=== PATIENT | male | born 1955 ===

== ENCOUNTER 2021-03-20 16:35 | Emergency (ER) | payer OTHER ==
--- NOTE | 2021-03-20 16:45 | EDM.PDOC ---
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 Denies: Old Records History Limitations: Reports: Other (no old records) - History of Present Illness INITIAL COMMENTS - FREE TEXT/NARRATIVE: 65 yo male from [place], [place] got his 2nd Covid vaccine yesterday. He awoke in the middle of the night with chills. Today has mild SOB, CP, and feels weak. Has been taking acetaminophen since the onset of his sx's. No cough or urinary sx's. Onset: Today, Sudden Onset Date: 03/20/21 Onset Time: 03:00 Duration: Hour(s):, Constant Location: Reports: Generalized Quality: Reports: Ache Severity: Moderate Improves with: Reports: Medication (acetaminophen improves somewhat) Worsens with: Reports: None Context: Reports: Other (See HPI) Associated Symptoms: Reports: Chest Pain, Diaphoresis, Fever/Chills, Shortness of Breath, Weakness. 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 - Related Data Allergies Allergy/AdvReac Type Severity Reaction Status Date / Time propofol Allergy Other Verified 03/20/21 16:44 Home Meds: Home Meds Aspirin [Halfprin] 81 mg PO DAILY 03/20/21 [History] Clopidogrel Bisulfate [Plavix] 75 mg PO DAILY 03/20/21 [History] Levothyroxine 175 mcg PO ACBREAKFAST 03/20/21 [History] Loratadine [Claritin] 10 mg PO DAILY 03/20/21 [History] Methotrexate 8 tab PO ASDIRECTED 03/20/21 [History] Nitroglycerin 0.4 mg SL ASDIRECTED 03/20/21 [History] atorvaSTATin [Lipitor] 10 mg PO DAILY 03/20/21 [History] carvediloL [Carvedilol] 12.5 mg PO BID 03/20/21 [History] glyBURIDE [Micronase] 2.5 mg PO DAILY 03/20/21 [History] lisinopriL [Lisinopril] 10 mg PO DAILY 03/20/21 [History] metFORMIN [Glucophage] 1,000 mg PO DAILY 03/20/21 [History] ED ROS GENERAL - Review of Systems Review Of Systems: See Below Constitutional: Reports: No Symptoms HEENT: Reports: No Symptoms Respiratory: Reports: Shortness of Breath Cardiovascular: Reports: Chest Pain, Dyspnea on Exertion GI/Abdominal: Reports: No Symptoms Musculoskeletal: Reports: Neck Pain (back of neck) Skin: Reports: Diaphoresis Neurological: Reports: No Symptoms Psychiatric: Reports: No Symptoms ED EXAM, GENERAL - Physical Exam Exam: See Below Exam Limited By: No Limitations General Appearance: Alert, WD/WN, No Apparent Distress Eye Exam: Bilateral Eye: Normal Inspection Ears: Normal External Exam, Normal Canal, Hearing Grossly Normal Nose: Normal Inspection, No Blood Throat/Mouth: Normal Inspection, Normal Lips, Normal Oropharynx, Normal Voice, No Airway Compromise Head: Atraumatic, Normocephalic Neck: Normal Inspection Respiratory/Chest: No Respiratory Distress, Lungs Clear, Normal Breath Sounds, No Accessory Muscle Use, Chest Non-Tender Cardiovascular: Regular Rate, Rhythm, No Edema GI/Abdominal: Normal Bowel Sounds, Soft, No Distention, Tender (RUQ). No: Non- Tender, Distended Back Exam: Normal Inspection. No: CVA Tenderness (R), CVA Tenderness (L) Extremities: Normal Inspection, Normal Range of Motion, Non-Tender, No Pedal Edema. No: Pedal Edema, Mariah's Sign Neurological: Alert, Oriented, CN II-XII Intact, Normal Cognition, No Motor/Sensory Deficits Psychiatric: Normal Affect, Normal Mood Skin Exam: Warm, Dry, Intact, Normal Color, No Rash #1 Interpretation EKG Date: 03/20/21 Time: 16:40 Rhythm: NSR Rate (Beats/Min): 94 Mora: Normal P-Wave: Present QRS: RBBB ST-T: Normal QT: Normal Comparison: NA - No Prior EKG (inverted T's in III, AVF) Course - Vital Signs Last Recorded V/S: Last Vital Signs Temp 37 C 03/20/21 17:01 Pulse 92 03/20/21 17:36 Resp 20 03/20/21 17:36 BP 145/72 H 03/20/21 17:36 Pulse Ox 93 L 03/20/21 17:36 - Orders/Labs/Meds Orders: Active Orders 24 hr Category Date Time Status Cardiac Monitoring [RC] .As Directed Care 03/20/21 16:38 Active EKG Documentation Completion [RC] ASDIRECTED Care 03/20/21 16:38 Active Dextrose 50% in Water Med 03/20/21 17:44 Active 50 ml IVPUSH ASDIRECTED PRN Glucagon,Human Recombinant [GlucaGen] Med 03/20/21 17:44 Active 1 mg IM ASDIRECTED PRN EKG 12 Lead [EK] Routine Ther 03/20/21 16:38 Ordered Medication Orders Dextrose/Water (50% Dextrose In Water 50 Ml Syringe) 50 ml IVPUSH ASDIRECTED PRN PRN Reason: Hypoglycemia Glucagon (Glucagon,Human Recombinant 1 Mg Vial) 1 mg IM ASDIRECTED PRN PRN Reason: Hypoglycemia Labs: Laboratory Tests 03/20/21 03/20/21 03/20/21 Range/Units 17:17 17:17 17:25 WBC 5.6 (4.5-11.0) K/uL RBC 4.61 (4.30-5.90) M/uL Hgb 15.2 H (12.0-15.0) g/dL Hct 43.7 (40.0-54.0) % MCV 95 (80-98) fL MCH 33 H (27-31) pg MCHC 35 (32-36) % Plt Count 186 (150-400) K/uL Sodium 138 L (140-148) mmol/L Potassium 3.9 (3.6-5.2) mmol/L Chloride 101 (100-108) mmol/L Carbon Dioxide 26 (21-32) mmol/L Anion Gap 14.9 H (5.0-14.0) mmol/L BUN 12 (7-18) mg/dL Creatinine 1.1 (0.8-1.3) mg/dL Est Cr Clr Drug Dosing 72.26 mL/min Estimated GFR (MDRD) > 60 (>60) Glucose 274 H (74-106) mg/dL Calcium 8.7 (8.5-10.1) mg/dL Total Bilirubin 0.9 (0.2-1.0) mg/dL AST 30 (15-37) U/L ALT 59 (12-78) U/L Alkaline Phosphatase 88 (46-116) U/L Troponin I < 0.017 (0.000-0.056) ng/mL C-Reactive Protein 2.35 H (0.0-0.3) mg/dL Total Protein 6.6 (6.4-8.2) g/dL Albumin 3.7 (3.4-5.0) g/dL Globulin 2.9 (2.3-3.5) g/dL Albumin/Globulin Ratio 1.3 (1.2-2.2) Meds: Medications Generic Name Dose Route Start Last Admin Trade Name Freq PRN Reason Stop Dose Admin Dextrose/Water 50 ml 03/20/21 17:44 50% Dextrose In Water 50 Ml Syringe IVPUSH ASDIRECTED PRN Hypoglycemia Glucagon 1 mg 03/20/21 17:44 Glucagon,Human Recombinant 1 Mg Vial IM ASDIRECTED PRN Hypoglycemia Discontinued Medications Generic Name Dose Route Start Last Admin Trade Name Freq PRN Reason Stop Dose Admin Insulin Human Regular 12 unit 03/20/21 17:44 Insulin Regular, Human 100 Units/Ml 3 Ml Vial SUBCUT 03/20/21 17:45 ONETIME ONE Departure - Departure Time of Disposition: 18:05 Disposition: Home, Self-Care 01 Condition: Fair Clinical Impression: Elevated blood sugar Vaccine reaction Qualifiers: Encounter type: initial encounter Qualified Code(s): T50.Z95A - Adverse effect of other vaccines and biological substances, initial encounter Referrals: PCP,None [Primary Care Provider] - Forms: ED Department Discharge Additional Instructions: Rest. Drink ample fluids. Continue acetaminophen 1000 mg every 6 hrs. Return or get rechecked if worse. Sepsis Event Note (ED) - Focused Exam Vital Signs: Vital Signs Temp Pulse Resp BP Pulse Ox 03/20/21 17:36 92 20 145/72 H 93 L 03/20/21 17:21 92 18 129/66 93 L 03/20/21 17:06 94 19 136/70 95 03/20/21 17:01 37 C 99 19 148/74 H 95 03/20/21 16:51 98 19 132/66 93 L 03/20/21 16:40 37 C 99 19 148/74 H 95 - My Orders Last 24 Hours: My Active Orders 03/20/21 16:38 Cardiac Monitoring [RC] .As Directed EKG Documentation Completion [RC] ASDIRECTED EKG 12 Lead [EK] Routine 03/20/21 17:44 Dextrose 50% in Water 50 ml IVPUSH ASDIRECTED PRN Glucagon,Human Recombinant [GlucaGen] 1 mg IM ASDIRECTED PRN - Assessment/Plan Last 24 Hours: My Active Orders 03/20/21 16:38 Cardiac Monitoring [RC] .As Directed EKG Documentation Completion [RC] ASDIRECTED EKG 12 Lead [EK] Routine 03/20/21 17:44 Dextrose 50% in Water 50 ml IVPUSH ASDIRECTED PRN Glucagon,Human Recombinant [GlucaGen] 1 mg IM ASDIRECTED PRN
[2021-03-20] MEDS ORDERED: Glucagon,Human Recombinant 1 MG Vial IM PRN (17:44)
[2021-03-20] MEDS ORDERED: Insulin Regular, Human 100 Units/ML 3 ML Vial SUBCUT ONE ×2 (17:44→18:00)
[2021-03-20] MEDS ORDERED: 50% Dextrose in Water 50 ML Syringe IVPUSH PRN (17:44)
[2021-03-20] MEDS ORDERED: Insulin Regular, Human 100 Units/ML 3 ML Vial ONE (18:10)
== END 2021-03-20 18:23 | disposition home or self-care (01) ==
LOC: JP.ED 16:35
DX: R73.9 Hyperglycemia, unspecified (principal); T50.B95A Adverse effect of other viral vaccines, initial encounter; Z88.8 Allergy status to other drugs, medicaments and biological substances; Z79.82 Long term (current) use of aspirin; Z79.899 Other long term (current) drug therapy; Z79.02 Long term (current) use of antithrombotics/antiplatelets
CPT/HCPCS: 36415; 80053; 84484; 85027; 86140; 93005; 93010; 99283; 99285-25; J1815-GY